=== PATIENT | female | born 1950 | race Caucasian/White ===

== ENCOUNTER 2017-04-07 10:32 | Emergency (ER) | payer OTHER ==
[~2017-04-07] VITALS: Ht 165.1 cm; Wt 82.3 kg
[~2017-04-07 10:32] MED LIST: ASPIR-LOW81 MG PO; ASPIR-TRIN325 M1 PO; ASPIRIN81 M1 PO; ATORVASTATIN CA80 MG PO; Ativan PO; BUPROPION HCL150 M2 PO; BUPROPION XL150 MG PO; CALCIUM + D3 E1 EACH PO; CATAPRES-TTS 21 EACH TD; CLONIDINE1 EAC1 TD; COLACE100 MG PO; COLACE50 MG PO; CYMBALTA20 MG PO; CYMBALTA60 MG PO; Catapres-TTS 2 TD; Ceftin PO; Colace PO; Cymbalta PO; DILAUDID2 MG PO; DURAGESIC12 MICROGR TD; Duragesic TD; Ecotrin PO; FENTANYL1 EAC2 TD; FLECTOR 1.3%1 PATC1 TD; FLONASE16 G1 BOTH NARES; FORTAMET500 M1 PO; Feosol PO; GLUCOPHAGE500 MG PO; GLYBURIDE5 MG PO; Glucophage PO; INSULIN PUMP SCCONT; LEVAQUIN750 MG PO; LEVEMIR FL100 UNITS/ SC; LEVEMIR100 UNIT/2 SC; LEVEMIR100 UNIT/2 SQ; LIDODERM 5% P1 PATCH TD; LISINOPRIL10 MG PO; LO-DOSE ASPIRIN81 M1 PO; LORAZEPAM0.5 MG PO; LYRICA150 MG PO; LYRICA75 MG PO; METFORMIN HCL1000 M1 PO; METFORMIN HCL500 MG PO; METOPROLOL SUC100 MG PO; METOPROLOL TAR100 MG PO; MONTELUKAST SOD10 MG PO; NEURONTIN100 MG PO; NORCO 5/3251 TABLET PO; NOVOLOG MI100 UNIT/4 SQ; NOVOLOG PE100 UNITS/ SC; OMEPRAZOLE40 M1 PO; OMEPRAZOLE40 MG PO; ONDANSETRON HCL4 MG PO; PRAVACHOL10 MG PO; PRILOSEC40 MG PO; Proventil,Ventolin H IH; RELPAX20 MG PO; SAVELLA50 MG PO; SENOKOT S,PE1 TABLET PO; SIMVASTATIN80 MG PO; SINGULAIR10 MG PO; Senokot S,Pericolace PO; Singulair PO; TOPAMAX15 MG PO; TOPIRAMATE50 MG PO; TOPROL XL100 MG PO; TOPROL XL50 MG PO; TRAMADOL HCL50 MG PO; Topamax PO; Toprol XL PO; ULTRAM50 MG PO; Ultram PO; VENTOLIN HFA18 GM IH; VITAMIN D1000 UNIT PO; VOLTAREN75 MG PO; Vicodin,Lortab 5/500 PO; Vicodin,Norco 5/325 PO; Wellbutrin XL PO; ZESTRIL,PRINIV2.5 MG PO; ZOFRAN4 MG PO; Zestril,Prinivil PO; Zocor PO; celeBREX PO
[2017-04-07 13:22] LABS: HEMATOCRIT 46.6 % (36.0-46.0); MCH 30.7 PG (29.0-34.0); MCHC 33.7 G/DL (30.0-36.0); MCV 91.2 FL (83-99); MEAN PLAT.VOLUME 9.5 uM^3 (9.5-12.4); PLATELET COUNT 216 K/uL (156-360); RBC DIS.WIDTH-CV 12.1 % (11.8-14.6); RBC DIS.WIDTH-SD 40.6 % (39-53); RED BLOOD COUNT 5.11 M/uL (3.80-5.20); WHITE BLOOD COUNT 10.1 K/uL (4.1-10.2)
[2017-04-07 13:59] LABS: ALKALINE PHOSPHATASE 60 IU/L (3-129); ANION GAP 8 MEQ/L (2-14); CHLORIDE 103 MEQ/L (99-109); CREATINE KINASE 72 IU/L (1-294); GFR ESTIMATE (CALCULATED) > 59 mL/min/; GLUCOSE 135 mg/dL (70-99); POTASSIUM 3.8 MEQ/L (3.7-5.4); SAMPLE HEMOLYSIS CHECK 0; SAMPLE ICTERIC CHECK 0; SAMPLE LIPEMIA CHECK 0; SODIUM 137 MEQ/L (136-147); TOTAL BILIRUBIN 0.7 MG/DL (0.0-1.0); UREA NITROGEN (BUN) 21 mg/dL (9-23)
[2017-04-07] MEDS ORDERED: REGLAN10 MG PO (14:16)
[2017-04-07] MEDS ORDERED: IMITREX25 MG PO (14:16)
[2017-04-07 14:38] VITALS: BP 150/82
== END 2017-04-07 14:40 | disposition home or self-care (01) ==
LOC: EME 10:32
PROVIDERS: Emergency Medicine
DX: R25.2 Cramp and spasm (principal); G43.909 Migraine, unspecified, not intractable, without status migrainosus; E11.40 Type 2 diabetes mellitus with diabetic neuropathy, unspecified; J45.909 Unspecified asthma, uncomplicated; I10 Essential (primary) hypertension; Z79.4 Long term (current) use of insulin; G89.29 Other chronic pain; M79.7 Fibromyalgia; Z88.6 Allergy status to analgesic agent; Z91.013 Allergy to seafood
CPT/HCPCS: 80053; 82550; 85027; 93005; 99281; 99284; J2765; J3030; J7030

== ENCOUNTER 2017-08-26 05:01 | Emergency (ER) | payer OTHER ==
[~2017-08-26] VITALS: Ht 165.1 cm; Wt 86.3 kg
[~2017-08-26 05:01] MED LIST changes: +IMITREX25 MG PO; +REGLAN10 MG PO
[2017-08-26 05:58] LABS: HEMATOCRIT 42.5 % (36.0-46.0); MCH 30.5 PG (29.0-34.0); MCHC 33.2 G/DL (30.0-36.0); MCV 91.8 FL (83-99); MEAN PLAT.VOLUME 9.2 uM^3 (9.5-12.4); PLATELET COUNT 224 K/uL (156-360); RBC DIS.WIDTH-CV 12.1 % (11.8-14.6); RBC DIS.WIDTH-SD 40.9 % (39-53); RED BLOOD COUNT 4.63 M/uL (3.80-5.20); WHITE BLOOD COUNT 8.5 K/uL (4.1-10.2)
[2017-08-26 06:08] LABS: CHLORIDE 105 mEq/L (99-109); POTASSIUM 3.7 mEq/L (3.7-5.4); SODIUM 139 mEq/L (136-147)
[2017-08-26 06:11] LABS: GLUCOSE 154 mg/dL (70-99)
[2017-08-26 06:12] LABS: ANION GAP 8 MEQ/L (2-14)
[2017-08-26 06:13] LABS: TOTAL BILIRUBIN 0.8 mg/dL (0.0-1.0)
[2017-08-26 06:14] LABS: ALKALINE PHOSPHATASE 69 IU/L (3-129); GFR ESTIMATE (CALCULATED) > 59 mL/min/
[2017-08-26 06:15] LABS: UREA NITROGEN (BUN) 15 mg/dL (9-23)
[2017-08-26 06:18] LABS: LIPASE 14 U/L (1.0-51.0)
[2017-08-26] MEDS ORDERED: ZOFRAN4 MG PO (06:30)
[2017-08-26] MEDS ORDERED: BENTYL20 MG PO (07:02)
[2017-08-26 08:31] VITALS: BP 144/89
== END 2017-08-26 08:35 | disposition home or self-care (01) ==
LOC: EME → EDBD 05:01 → EME 08:35
PROVIDERS: Emergency Medicine
DX: B34.9 Viral infection, unspecified (principal); R11.2 Nausea with vomiting, unspecified; Z98.890 Other specified postprocedural states; I10 Essential (primary) hypertension; E11.43 Type 2 diabetes mellitus with diabetic autonomic (poly)neuropathy; K31.84 Gastroparesis; M79.7 Fibromyalgia; K21.9 Gastro-esophageal reflux disease without esophagitis; J45.909 Unspecified asthma, uncomplicated; F41.9 Anxiety disorder, unspecified; F32.9 Major depressive disorder, single episode, unspecified; M19.90 Unspecified osteoarthritis, unspecified site; G43.909 Migraine, unspecified, not intractable, without status migrainosus; Z96.653 Presence of artificial knee joint, bilateral; Z96.41 Presence of insulin pump (external) (internal); Z79.82 Long term (current) use of aspirin; Z88.8 Allergy status to other drugs, medicaments and biological substances
CPT/HCPCS: 80053; 81003; 83605; 83690; 85027; 87040; 99281; 99285; J2405; J7030

== ENCOUNTER 2017-12-24 15:56 | Emergency (ER) | payer OTHER ==
[~2017-12-24] VITALS: Ht 165.1 cm; Wt 79.1 kg
[~2017-12-24 15:56] MED LIST changes: +BENTYL20 MG PO
[2017-12-24 16:30] LABS: CARBON DIOXIDE (BICARBONATE) 25.4 MEQ/L (20-31); HEMATOCRIT 39.1 % (36.0-46.0); MCH 30.6 PG (29.0-34.0); MCHC 33.2 G/DL (30.0-36.0); PLATELET COUNT 201 K/uL (156-360); RBC DIS.WIDTH-CV 12.4 % (11.8-14.6); RBC DIS.WIDTH-SD 41.3 % (39-53); RED BLOOD COUNT 4.25 M/uL (3.80-5.20); WHITE BLOOD COUNT 8.9 K/uL (4.1-10.2)
[2017-12-24 16:42] LABS: ALBUMIN 3.3 g/dL (3.2-4.8); CHLORIDE 111 mEq/L (99-109); POTASSIUM 3.9 mEq/L (3.7-5.4); SODIUM 140 mEq/L (136-147)
[2017-12-24 16:44] LABS: GLUCOSE 287 mg/dL (70-99); TOTAL PROTEIN 6.2 g/dL (6.4-8.3)
[2017-12-24 16:46] LABS: TOTAL BILIRUBIN 0.3 mg/dL (0.0-1.0)
[2017-12-24 16:48] LABS: ALKALINE PHOSPHATASE 66 IU/L (3-129); GFR ESTIMATE (CALCULATED) 58 mL/min/
[2017-12-24 16:49] LABS: UREA NITROGEN (BUN) 17 mg/dL (9-23)
[2017-12-24 16:50] LABS: AST (GOT) 14 IU/L (2-34)
[2017-12-24 16:51] LABS: ALT (GPT) 14 IU/L (3-49); LIPASE 27 U/L (1.0-51.0)
[2017-12-24 17:05] LABS: APPEARANCE CLEAR ((CLEAR)); BILIRUBIN NEGATIVE; BLOOD NEGATIVE; COLOR YELLOW ((YELLOW)); GLUCOSE (STRIP) >=500; KETONES NEGATIVE; LEUKOCYTES NEGATIVE; NITRITE NEGATIVE; PROTEIN (STRIP) NEGATIVE; SPECIFIC GRAVITY 1.022 (1.000-1.030); UCUL ADDED? NO; UROBILINOGEN 0.2 MG/DL (0.2-1.0)
[2017-12-24 20:50] VITALS: BP 117/74
== END 2017-12-24 20:52 | disposition home or self-care (01) ==
LOC: EME 15:56
PROVIDERS: Emergency Medicine
DX: E86.0 Dehydration (principal); B34.9 Viral infection, unspecified; R51 Headache; E11.9 Type 2 diabetes mellitus without complications; I10 Essential (primary) hypertension; K21.9 Gastro-esophageal reflux disease without esophagitis; M79.7 Fibromyalgia; K31.84 Gastroparesis; J45.909 Unspecified asthma, uncomplicated; F41.9 Anxiety disorder, unspecified; F32.9 Major depressive disorder, single episode, unspecified; Z96.651 Presence of right artificial knee joint; Z90.49 Acquired absence of other specified parts of digestive tract; Z90.710 Acquired absence of both cervix and uterus; Z96.41 Presence of insulin pump (external) (internal); Z79.82 Long term (current) use of aspirin
CPT/HCPCS: 70450; 71046; 80053; 81003; 82010; 82803; 82948; 83690; 85027; 87502; 99281; 99284; J2270; J2405; J7030

== ENCOUNTER 2018-02-10 07:31 | Observation (INO) | payer OTHER ==
[~2018-02-10] VITALS: Ht 165.1 cm; Wt 84.0 kg
[~2018-02-10 07:31] MED LIST changes: +LOPRESSOR50 MG PO; -TOPROL XL100 MG PO
[2018-02-10 07:59] LABS: BASOPHIL (%) 0.6 % (0-1); EOSINOPHIL (%) 1.2 % (0-5); EOSINOPHIL COUNT 0.1 K/uL (0-0.3); HEMATOCRIT 41.7 % (36.0-46.0); HEMOGLOBIN 14.3 G/DL (11.9-15.5); IMMATURE GRANULOCYTE (%) 0.1 % (0.0-0.7); LYMPHOCYTE (%) 19.6 % (15-42); LYMPHOCYTE COUNT 1.4 K/uL (1.0-2.8); MCH 30.9 PG (29.0-34.0); MCHC 34.3 G/DL (30.0-36.0); MCV 90.1 FL (83-99); MONOCYTE (%) 6.2 % (3-12); MONOCYTE COUNT 0.4 K/uL (0-0.8); NEUTROPHIL (%) 72.3 % (45-76); PLATELET COUNT 222 K/uL (156-360); RBC DIS.WIDTH-CV 12.2 % (11.8-14.6); RBC DIS.WIDTH-SD 39.7 % (39-53); RED BLOOD COUNT 4.63 M/uL (3.80-5.20); WHITE BLOOD COUNT 6.9 K/uL (4.1-10.2)
[2018-02-10 08:29] LABS: ALBUMIN 3.9 G/DL (3.2-4.8); ALKALINE PHOSPHATASE 63 IU/L (3-129); ALT (GPT) 9 IU/L (3-49); AST (GOT) 15 IU/L (2-34); CHLORIDE 106 MEQ/L (99-109); CREATININE 0.9 MG/DL (0.6-1.3); GFR ESTIMATE (CALCULATED) > 59 mL/min/; GLUCOSE 159 mg/dL (70-99); LIPASE 18 U/L (1.0-51.0); POTASSIUM 3.7 MEQ/L (3.7-5.4); SODIUM 138 MEQ/L (136-147); TOTAL BILIRUBIN 0.8 MG/DL (0.0-1.0); UREA NITROGEN (BUN) 16 mg/dL (9-23)
[2018-02-10 08:40] LABS: TROP-I INTERPRETATION NEGATIVE; TROPONIN-I 0.01 ng/mL (0.0-0.30)
[2018-02-10 08:55] LABS: APPEARANCE CLEAR ((CLEAR)); BILIRUBIN NEGATIVE; BLOOD SMALL; COLOR STRAW ((YELLOW)); GLUCOSE (STRIP) NEGATIVE; KETONES 5; LEUKOCYTES NEGATIVE; NITRITE NEGATIVE; PROTEIN (STRIP) NEGATIVE; SPECIFIC GRAVITY 1.008 (1.000-1.030); UROBILINOGEN 0.2 MG/DL (0.2-1.0)
[2018-02-10 08:59] LABS: BACTERIA RARE /HPF; EPITHELIAL CELLS RARE /HPF; MUCUS TRACE /LPF; RED BLOOD CELLS 0-5 /HPF (0-5); UCUL ADDED? NO; WHITE BLOOD CELLS 0-5 /HPF (0-5)
[2018-02-10] MEDS ORDERED: REGLAN10 MG PO (11:27)
[2018-02-10] MEDS ORDERED: DULOXETINE HCL30 MG PO (11:31)
[2018-02-10] MEDS ORDERED: CANASA1000 MG PR (11:32)
[2018-02-10 12:30] VITALS: BP 157/78
[2018-02-10 14:08] LABS: HEMOGLOBIN A1c (GLYCOHEMOGLOB) 6.9 % (Below 5.7)
[2018-02-10 14:28] LABS: TROP-I INTERPRETATION NEGATIVE; TROPONIN-I < 0.01 ng/mL (0.0-0.30)
[2018-02-10 16:40] VITALS: BP 146/82
[2018-02-10 19:27] VITALS: BP 118/78
[2018-02-10 20:56] LABS: HEMATOCRIT 40.2 % (36.0-46.0); HEMOGLOBIN 13.2 G/DL (11.9-15.5)
[2018-02-10 21:16] LABS: TROP-I INTERPRETATION NEGATIVE; TROPONIN-I < 0.01 ng/mL (0.0-0.30)
[2018-02-10 23:50] VITALS: BP 117/64
[2018-02-11 04:08] VITALS: BP 106/79
[2018-02-11 06:06] LABS: CHLORIDE 107 MEQ/L (99-109); GFR ESTIMATE (CALCULATED) 58 mL/min/; GLUCOSE 89 mg/dL (70-99); POTASSIUM 3.5 MEQ/L (3.7-5.4); SODIUM 141 MEQ/L (136-147); UREA NITROGEN (BUN) 14 mg/dL (9-23)
[2018-02-11 08:39] VITALS: BP 111/62
[2018-02-11] MEDS ORDERED: SUCRALFATE1 GM PO (09:16)
[2018-02-11] MEDS ORDERED: BENTYL20 MG PO (09:16)
[2018-02-11 09:21] LABS: HEMATOCRIT 41.6 % (36.0-46.0); HEMOGLOBIN 13.3 G/DL (11.9-15.5); MCV 92.4 FL (83-99)
== END 2018-02-11 11:50 | disposition home or self-care (01) ==
LOC: EME 07:31 → ENRESERV 10:51 → EDOF 10:51 → 4SOUTH 10:51 → EDOF 10:51 → ENRESERV 11:07 → 4SOUTH 11:50
PROVIDERS: Emergency Medicine; Hospitalist; Physician Assistant
DX: R07.9 Chest pain, unspecified (principal); K62.5 Hemorrhage of anus and rectum; E11.43 Type 2 diabetes mellitus with diabetic autonomic (poly)neuropathy; I10 Essential (primary) hypertension; E78.5 Hyperlipidemia, unspecified; K21.9 Gastro-esophageal reflux disease without esophagitis; Z82.49 Family history of ischemic heart disease and other diseases of the circulatory system; M79.7 Fibromyalgia; K58.9 Irritable bowel syndrome, unspecified; F32.9 Major depressive disorder, single episode, unspecified; F41.9 Anxiety disorder, unspecified; Z96.651 Presence of right artificial knee joint; Z90.710 Acquired absence of both cervix and uterus; Z90.49 Acquired absence of other specified parts of digestive tract; Z96.41 Presence of insulin pump (external) (internal); Z83.3 Family history of diabetes mellitus; Z80.6 Family history of leukemia; Z82.3 Family history of stroke; Z84.1 Family history of disorders of kidney and ureter; Z80.3 Family history of malignant neoplasm of breast
CPT/HCPCS: 70450; 71046; 74177; 80048; 80053; 81003; 82948; 83036; 83690; 84484; 85014; 85018; 85025; 93005; 94640; 94640 76; 99281; 99285; C9113; G0378; J1200; J2405; J2765; J7030